=== PATIENT | female | born 1975 | race Asian ===

== ENCOUNTER 2025-05-17 18:25 | Emergency (ER) | payer OTHER, SELFPAY ==
[~2025-05-17 18:25] MED LIST: Iopamidol 300 61% 100 ML VIAL FS ONE
[2025-05-17] MEDS ORDERED: Ondansetron PF 4 MG/2 ML Vial ONE (19:16)
[2025-05-17 19:39] LABS: #Basophils 0.05 10x3/uL (0.0-0.2); #Eosinophils 0.36 10x3/uL (0.0-0.5); #Monocytes 0.81 10x3/uL (0.0-1.1); #Neutrophils 3.20 10x3/uL (1.5-8.4); %Basophils 0.7 % (0.0-2.0); %Eosinophils 5.3 % (0.0-6.0); %Lymphocytes 34.2 % (18.0-47.0); %Monocytes 12.0 % (0.0-10.0); %Neutrophils 47.5 % (40.0-75.0); Hematocrit 42.1 % (34.9-44.5); Hemoglobin 13.6 g/dL (12.0-15.5); Mean Corpuscular Hemoglobin 28.8 pg (27.0-33.0); Mean Corpuscular Volume 89.0 fL (81.6-98.3); Platelet Count 296 10x3/uL (150-450); Red Blood Cell (RBC) Count 4.73 10x6/uL (3.90-5.03); White Blood Cell (WBC) Count 6.75 10x3/uL (3.5-10.5)
[2025-05-17 19:55] LABS: ALT (SGPT) 42 U/L (Less than 34); AST (SGOT) 42 U/L (11-34); Albumin 4.5 g/dL (3.1-4.5); Alkaline Phosphatase 72 U/L (40-110); Anion Gap 11 mmol/L (10-20); BUN (Urea Nitrogen) 18 mg/dL (7.0-18.7); Bilirubin, Total 0.3 mg/dL (0.3-1.2); Calc. Creatinine Clearance 0 mL/min (70-130); Calcium 9.7 mg/dL (7.8-10.44); Carbon Dioxide 25 mmol/L (22-29); Chloride 107 mmol/L (98-107); Globulin 3.6 g/dL (2.4-3.5); Glucose 88 mg/dL (70-105); Lipase 22 U/L (8-78); Potassium 4.0 mmol/L (3.5-5.1); Sodium 139 mmol/L (136-145)
[2025-05-17 20:31] LABS: Glucose, Urine (Dipstick) Normal (Negative); Leukocyte Negative (Negative); Protein, Urine (Dipstick) Negative (Neg-Trace); Specific Gravity, Urine 1.025 (1.005-1.030)
[2025-05-17 20:42] LABS: Bacteria/HPF Rare-Few HPF (None Seen); CAUTI Indications for Culture Pelvic or flank pain; RBC/HPF None Seen HPF (0-3); Urine Culture Reflex No No; WBC/HPF None Seen HPF (0-3)
== END 2025-05-17 21:29 ==
LOC: CSHERS 18:25
DX: R14.0 Abdominal distension (gaseous) (principal); I10 Essential (primary) hypertension
CPT/HCPCS: 74177; 80053; 81001; 83690; 85025; 96374; 96375; J2270; J2405